=== PATIENT | female | born 1975 | race African-American/Black ===

== ENCOUNTER 2018-04-08 11:11 | Emergency (ER) | payer OTHER ==
[~2018-04-08] VITALS: Ht 170.2 cm; Wt 120.0 kg
[2018-04-08] MEDS ORDERED: HYDROCODONE/ACETAMINOPHEN 10/325MG TABLET PO ONE (12:15)
[2018-04-08] MEDS ORDERED: KETOROLAC 30MG/ML VIAL IM ONE (13:30)
[2018-04-08 14:46] VITALS: BP 133/75
== END 2018-04-08 14:49 | disposition home or self-care (01) ==
LOC: ER 11:11
DX: S20.212A Contusion of left front wall of thorax, initial encounter (principal); V47.5XXA Car driver injured in collision with fixed or stationary object in traffic accident, initial encounter; Y93.89 Activity, other specified; Y92.410 Unspecified street and highway as the place of occurrence of the external cause; R03.0 Elevated blood-pressure reading, without diagnosis of hypertension
CPT/HCPCS: 71101; 96372; 99283; J1885